=== PATIENT | female | born 2000 | race African-American/Black ===

== ENCOUNTER 2020-03-03 19:25 | Emergency (ER) | payer MEDICAID ==
[2020-03-03 19:32] VITALS: BP 154/76
[2020-03-03] MEDS ORDERED: PREDNISONE 20 MG TABLET PO ONE (20:15)
--- NOTE | 2020-03-03 20:20 | ER Document Report ---
HPI - HPI Time Seen by Provider: 03/03/20 20:13 Pain Level: Denies Notes: cHIEF COMPLAINT: Asthma exacerbation HPI: 19-year-old female with asthma history presenting for asthma exacerbation over the last 3 to 4 days. Increased cough no wheezing. No fever. Patient did move here from [place] 1 month ago but has had no other upper respiratory symptoms states she often go several months without having to use her inhaler. Does have a nebulizer at home as well. Ran out of medicine both in her inhaler and the machine today. No chest pain. States this feels like her typical asthma ROS: See HPI - all other systems were reviewed and are otherwise negative Constitutional: no fever Eyes: no drainage, no blurred vision ENT: no runny nose, no sore throat Cardiovascular: no chest pain Resp: + SOB, + cough GI: no vomiting, no diarrhea, no abdominal pain : no dysuria Integumentary: no rash Allergy: no hives Musculoskeletal: no extremity pain or swelling Neurological: no numbness/tingling, no weakness MEDICATIONS: I agree with the patient medications as charted by the RN. ALLERGIES: I agree with the allergies as charted by the RN. PAST MEDICAL HISTORY/PAST SURGICAL HISTORY: Reviewed and agree as charted by RN. SOCIAL HISTORY: Reviewed and agree as charted by RN. FAMILY HISTORY: No significant familial comorbid conditions directly related to patient complaint EXAM: Reviewed vital signs as charted by RN. CONSTITUTIONAL: Alert and oriented and responds appropriately to questions. Well-appearing; well-nourished HEAD: Normocephalic; atraumatic EYES: PERRL; Conjunctivae clear, sclerae non-icteric ENT: normal nose; no rhinorrhea; moist mucous membranes; pharynx without lesions noted, no uvula edema or deviation, no tonsillar hypertrophy, phonation normal NECK: Supple without meningismus; non-tender; no cervical lymphadenopathy, no masses CARD: RRR; no murmurs, no clicks, no rubs, no gallops; symmetric distal pulses RESP: Normal chest excursion without splinting or tachypnea; breath sounds clear and equal bilaterally; no wheezes, no rhonchi, no rales, pulse oximetry 98% on room air not hypoxic ABD/GI: Normal bowel sounds; non-distended; soft, non-tender, no rebound, no guarding; no palpable organomegaly or masses. BACK: The back appears normal and is non-tender to palpation, there is no CVA tenderness EXT: Normal ROM in all joints; non-tender to palpation; no cyanosis, no effusions, no edema SKIN: Normal color for age and race; warm; dry; good turgor; no acute lesions noted NEURO: Moves all extremities equally; Motor and sensory function intact PSYCH: The patient's mood and manner are appropriate. Grooming and personal hygiene are appropriate. MDM: 19-year-old female with asthma exacerbation. Low suspicion for COVID at this time. She did use her inhaler in the lobby it was the last puff on the inhaler will give patient steroids, prescribe her medicine both by MDI and with her machine follow-up with medical promotional marketing analyst - REPRODUCTIVE LMP: current Reproductive: DENIES: : Past Medical History - Social History Smoking Status: Never Smoker Family History: Reviewed & Not Pertinent Patient has homicidal ideation: No Course - Vital Signs Vital signs: Temp Pulse Resp BP Pulse Ox 98.7 F 109 H 16 154/76 H 100 03/03/20 20:03 03/03/20 19:29 03/03/20 19:29 03/03/20 19:29 03/03/20 19:29 Discharge - Discharge Clinical Impression: Asthma exacerbation Qualifiers: Asthma severity: mild Asthma persistence: unspecified Qualified Code(s): J45.901 - Unspecified asthma with (acute) exacerbation Condition: Stable Disposition: HOME, SELF-CARE Instructions: Asthma ([facility]) Additional Instructions: 1. take the medications as prescribed, if you were prescribed a cough medicine, no driving on narcotics 2. if you were prescribed an Albuterol inhaler, use it as instructed, 2 puffs every 4 hours as needed for cough/wheezing 3. call your primary care provider as soon as possible to schedule recheck appt. in the office. 4. return to the ED for any worsening condition, shortness of breath or continued fever that does not resolve with Motrin/Tylenol Prescriptions: Prednisone [Deltasone 20 mg Tablet] 2 tab PO DAILY 5 Days #10 tablet Albuterol Sulfate [Proair HFA Inhalation Aerosol 8.5 gm MDI] 2 puff IH Q4H PRN #1 mdi PRN Reason: Albuterol Sulfate [Ventolin 0.083% Neb 2.5 mg/3 mL Ampul] 1 vial NEB Q4 #1 pkg
== END 2020-03-03 20:20 | disposition home or self-care (01) ==
LOC: ER 19:25
DX: J45.901 Unspecified asthma with (acute) exacerbation (principal)
CPT/HCPCS: 99284; J7512